=== PATIENT | female | born 1975 | race Caucasian/White ===

== ENCOUNTER 2018-10-06 10:27 | Emergency (ER) | payer OTHER ==
[~2018-10-06] VITALS: Ht 165.1 cm; Wt 98.4 kg
[~2018-10-06 10:27] MED LIST: IBUPROFEN 600600 M1 PO; KEFLEX500 MG PO; LISINOPRIL10 MG PO; NORCO 5-325 TA1 EACH PO; ONDANSETRON HCL4 M2 PO
[2018-10-06 11:52] LABS: ABSOLUTE NEUTROPHILS 4.9 thou/uL (1.4-8.2); BASOPHILS 0.4 % (0.0-2.0); EOSINOPHILS 0.7 % (0.0-3.0); HEMOGLOBIN 10.7 gm/dL (12.0-15.0); LYMPHOCYTES 15.9 % (24.0-44.0); MCHC 35.6 g/dL (28.0-37.0); MCV 115.1 fL (80.0-100.0); PLATELET COUNT 110 thou/uL (150-400); RBC 2.61 mil/uL (4.20-5.00); RDW 20.8 % (10.5-14.5); WBC 6.3 thou/uL (4.0-11.0)
[2018-10-06 12:05] LABS: ALBUMIN 3.6 g/dL (3.4-5.0); ANION GAP 12 mmol/L (7-16); BUN 11 mg/dL (7-18); CHLORIDE 87 mmol/L (98-107); CO2 26 mmol/L (21-32); DIRECT BILIRUBIN 0.3 mg/dL (<0.1-0.3); GLUCOSE 107 mg/dL (74-106); LIPASE 75 U/L (73-393); POTASSIUM 3.2 mmol/L (3.5-5.1); SGOT 38 U/L (15-37); SGPT 17 U/L (30-65); SODIUM 125 mmol/L (136-145); TOTAL BILIRUBIN 1.2 mg/dL (<0.1-1.0); TOTAL PROTEIN 7.7 g/dL (6.4-8.2); TROPONIN-I <0.06 ng/mL (<0.06)
[2018-10-06 12:11] LABS: ANISOCYTOSIS 2+; CALCIUM 9.2 mg/dL (8.5-10.1); MACROCYTES 2+
[2018-10-06] MEDS ORDERED: NAPROSYN500 MG PO (14:50)
[2018-10-06] MEDS ORDERED: BENTYL 20 MG TA20 M1 PO (14:50)
[2018-10-06 15:30] VITALS: BP 108/51
--- NOTE | 2018-10-08 08:02 | EKG ---
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1975 Requested By: Shanna Pryor Order Number: [id number] MD: Leonel Tillman Measurements Intervals [place] Rate: 105 P: 60 NH: 165 QRS: 2 QRSD: 99 T: 58 QT: 350 QTc: 463 Interpretive Statements Sinus tachycardia Otherwise normal tracing Baseline wander in lead(s) V1,V3 No previous ECG available for comparison Electronically Signed On 10-08-2018 8:02:04 CDT by Leonel Tillman [email or web address] ��������������������������������������������� <ELECTRONICALLY SIGNED> ���������������������������������������� By: Leonel Tillman MD, [facility] ��������������������������������������������� 10/08/18 0802 1032 1032 Leonel Tillman MD, FACC /EPI
== END 2018-10-06 15:30 | disposition home or self-care (01) ==
LOC: ER 10:27
PROVIDERS: Emergency Medicine
DX: R07.89 Other chest pain (principal); F17.210 Nicotine dependence, cigarettes, uncomplicated; I10 Essential (primary) hypertension

== ENCOUNTER 2020-09-22 10:33 | Emergency (ER) | payer OTHER ==
[~2020-09-22] VITALS: Ht 165.1 cm; Wt 97.0 kg
[~2020-09-22 10:33] MED LIST changes: +BENTYL 20 MG TA20 M1 PO; +NAPROSYN500 MG PO
[2020-09-22 11:50] LABS: URINE BILIRUBIN NEGATIVE (Negative); URINE BLOOD TRACE (Negative); URINE CLARITY CLEAR; URINE COLOR YELLOW; URINE GLUCOSE-RANDOM* 1+ (Negative); URINE KETONES NEGATIVE (Negative); URINE LEUKOCYTES-REFLEX NEGATIVE (Negative); URINE NITRITE-REFLEX NEGATIVE (Negative); URINE PROTEIN (DIPSTICK) TRACE (Negative); URINE SPECIFIC GRAVITY 1.015 (1.005-1.035); URINE UROBILINOGEN 0.2 E.U./dl (0.2-1.0)
[2020-09-22 12:00] LABS: ANION GAP 9 mmol/L (7-16); BUN 36 mg/dL (7-18); CALCIUM 10.1 mg/dL (8.5-10.1); CHLORIDE 95 mmol/L (98-107); CO2 29 mmol/L (21-32); CREATININE 2.5 mg/dL (0.6-1.0); GLUCOSE 105 mg/dL (74-106); POTASSIUM 4.1 mmol/L (3.5-5.1); SODIUM 133 mmol/L (136-145)
[2020-09-22 12:06] LABS: ABSOLUTE NEUTROPHILS 2.5 thou/uL (1.4-8.2); BASOPHILS 1.3 % (0.0-2.0); EOSINOPHILS 1.5 % (0.0-3.0); HEMATOCRIT 24.8 % (37.0-47.0); HEMOGLOBIN 8.4 gm/dL (12.0-15.0); LYMPHOCYTES 28.1 % (24.0-44.0); MCH 36.7 pg (26.0-34.0); MCHC 34.1 g/dL (28.0-37.0); MCV 107.6 fL (80.0-100.0); MONOCYTES 9.6 % (1.0-8.0); PLATELET COUNT 250 thou/uL (150-400); POLYS 59.5 % (36.0-66.0); RDW 13.8 % (10.5-14.5); WBC 4.2 thou/uL (4.0-11.0)
[2020-09-22 12:08] LABS: TROPONIN-I <0.06 ng/mL (<0.06)
--- NOTE | 2020-09-22 13:35 | EKG ---
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: : 1975 Requested By: Fransico Sorenson Order Number: [id number] MD: Gustavo Gonzalez Measurements Intervals [place] Rate: 86 P: 48 VT: 138 QRS: 48 QRSD: 129 T: -3 QT: 392 QTc: 469 Interpretive Statements Sinus rhythm Nonspecific intraventricular conduction delay Borderline repolarization abnormality Compared to ECG 10/06/2018 10:32:00 Intraventricular conduction delay now present Sinus tachycardia no longer present Electronically Signed On 09-22-2020 13:35:24 CDT by Gustavo Gonzalez [email or web address] <ELECTRONICALLY SIGNED> By: Gustavo Gonzalez MD, [facility] 09/22/20 1335 1039 1039 Gustavo Gonzalez MD, FACC /EPI
[2020-09-22 14:19] LABS: CREATININE 2.3 mg/dL (0.6-1.0)
[2020-09-22] MEDS ORDERED: PROTONIX 20 MG20 M1 PO (14:35)
[2020-09-22 14:39] LABS: MACROCYTES 2+
[2020-09-22 14:50] VITALS: BP 109/73
[2020-09-22] MEDS ORDERED: ANUSOL-HC30 GM TOP (14:53)
== END 2020-09-22 14:50 | disposition home or self-care (01) ==
LOC: ER 10:33
PROVIDERS: Nurse Practitioner
DX: R42 Dizziness and giddiness (principal); F10.10 Alcohol abuse, uncomplicated; D64.9 Anemia, unspecified; I10 Essential (primary) hypertension; F17.210 Nicotine dependence, cigarettes, uncomplicated; Z79.899 Other long term (current) drug therapy